=== PATIENT | female | born 1980 | race Caucasian/White ===

== ENCOUNTER 2020-06-25 17:27 | Emergency (ER) | payer OTHER ==
[~2020-06-25] VITALS: Ht 175.3 cm; Wt 72.6 kg
[2020-06-25] MEDS ORDERED: HYDR1TAB94 PO (17:39)
[2020-06-25] MEDS ORDERED: CLIN300 PO (17:39)
== END 2020-06-25 17:48 | disposition home or self-care (01) ==
LOC: ER 17:27
DX: K04.7 Periapical abscess without sinus (principal)
CPT/HCPCS: 99283; A9270